=== PATIENT | male | born 1940 | race Hispanic/Latino ===

== ENCOUNTER → 2020-03-23 | Day surgery (SDC) | payer MEDICARE, OTHER ==
[~2020-03-23] MED LIST: ALLOPURINOL100 MG PO; FENTANYL CITRATE/PF 100MCG/2 ML INJ ONE; LEVOTHYROXINE75 MCG PO; METFORMIN HCL500 MG PO; MIDAZOLAM HCL 2 MG/2 ML VIAL ONE; OR PHACO EYE KIT ONE; PREOP PHACO EYE KIT ONE; VASOTEC5 MG PO
[2020-03-23 15:33] VITALS: BP 156/90
== END | disposition home or self-care (01) ==
LOC: OR 11:59 → EDSEX 11:59
PROVIDERS: ATTEND Ophthalmology
DX: H25.11 Age-related nuclear cataract, right eye (principal); I10 Essential (primary) hypertension; M10.9 Gout, unspecified; E03.9 Hypothyroidism, unspecified; K21.9 Gastro-esophageal reflux disease without esophagitis; E11.9 Type 2 diabetes mellitus without complications; Z01.812 Encounter for preprocedural laboratory examination; Z20.828 Contact with and (suspected) exposure to other viral communicable diseases
CPT/HCPCS: 66984; U0002; V2632; J2250; J3010

== ENCOUNTER 2022-01-27 11:03 | Inpatient (IN) | payer MEDICARE, OTHER ==
[~2022-01-27] VITALS: Ht 162.6 cm; Wt 88.0 kg
[2022-01-27] VITALS (9 sets, daily range): BP systolic 97–161; BP diastolic 60–114
[~2022-01-27 11:03] MED LIST changes: -FENTANYL CITRATE/PF 100MCG/2 ML INJ ONE; -MIDAZOLAM HCL 2 MG/2 ML VIAL ONE; -OR PHACO EYE KIT ONE; -PREOP PHACO EYE KIT ONE
[2022-01-27] MEDS ORDERED: ACETAMINOPHEN 325 MG TAB PO ONE (11:45)
[2022-01-27] MEDS ORDERED: SODIUM CHLORIDE 0.9% 1000ML 1,000 ML IV ONE (11:45)
[2022-01-27 11:59] LABS: BASOPHILS % 0.3 % (0.0-1.0); EOSINOPHILS % 0.3 % (0.0-6.0); HEMATOCRIT 36.9 % (38.2-49.6); HEMOGLOBIN 12.9 g/dL (14.0-18.0); LYMPHOCYTES # (AUTO) 0.8 (1.0-3.2); LYMPHOCYTES % 6.6 % (18.0-39.1); MEAN CORPUSCULAR HEMOGLOBIN 31.2 pg (28-32); MEAN CORPUSCULAR VOLUME 89.1 fL (81-99); MONOCYTES # (AUTO) 0.6 (0.2-0.8); MONOCYTES % 4.9 % (4.4-11.3); NEUTROPHILS # (AUTO) 11.1 (2.1-6.9); NEUTROPHILS % 86.7 % (38.7-80.0); PLATELET COUNT 185 x10e3/uL (140-360); RED BLOOD COUNT 4.14 x10e6/uL (4.3-5.7); RED CELL DISTRIBUTION WIDTH 12.8 % (11.7-14.4)
[2022-01-27 12:03] LABS: INR 1.02; PROTHROMBIN TIME 14.3 seconds (11.9-14.5)
[2022-01-27 12:04] LABS: PARTIAL THROMBOPLASTIN TIME 34.1 seconds (23.8-35.5)
[2022-01-27 12:35] LABS: ALBUMIN 3.3 g/dL (3.5-5.0); ALBUMIN/GLOBULIN RATIO 0.8 (0.8-2.0); ANION GAP 18.2 mmol/L (8-16); CALCIUM 8.6 mg/dL (8.4-10.2); CREATININE, SERUM 1.69 mg/dL (0.72-1.25); POTASSIUM 4.2 mmol/L (3.5-5.1)
[2022-01-27] MEDS ORDERED: POVIDONE IODINE 0.05% 0.05 % ML PO ONE (13:57)
[2022-01-27] MEDS ORDERED: LIDOCAINE HCL 2% LOCAL INJ 5 ML SDV VIAL INJ ONE (13:57)
[2022-01-27] MEDS ORDERED: PROPOFOL IV EMULSION 10 MG/ML 20 ML VIAL ONE (13:57)
[2022-01-27 14:25] LABS: CLARITY,URINE SL CLOUDY (CLEAR); COLOR,URINE AMBER (YELLOW)
[2022-01-27 14:26] LABS: KETONES,URINE NEGATIVE (NEGATIVE); LEUKOCYTE ESTERASE ,URINE NEGATIVE (NEGATIVE); NITRITE,URINE NEGATIVE (NEGATIVE); PROTEIN,URINE DIPSTICK 1+ (NEGATIVE); URINE UROBILINOGEN 0.2 mg/dL (0.2 - 1)
[2022-01-27 14:40] LABS: BACTERIA,URINE MODERATE /HPF; RBC,URINE 0-5 /HPF (0-5)
[2022-01-27 15:13] LABS: FREE THYROXINE INDEX 2.3693 (1.4-3.8); THYROID STIMULATING HORMONE 3.659 uIU/mL (0.350-4.940)
[2022-01-27] MEDS ORDERED: SODIUM CHLORIDE 0.9% 1000ML 1,000 ML ONE (15:20)
[2022-01-27] MEDS ORDERED: ONDANSETRON HCL INJ 2MG/ML 2ML 2 MG/ML VIAL IV PRN (16:15)
[2022-01-27] MEDS ORDERED: SODIUM CHLORIDE FLUSH 10 ML SYR INJ PRN (16:15)
[2022-01-27] MEDS ORDERED: METOPROLOL SUCCINATE 25 MG TAB XL PO ONE (20:15)
[2022-01-27 20:34] LABS: CREATINE KINASE MB 4.6 ng/mL (0-5.0)
[2022-01-27] MEDS ORDERED: DOCUSATE SODIUM 100 MG CAP PO PRN (22:00)
[2022-01-27] MEDS ORDERED: HYDRALAZINE HCL 20 MG/ML VIAL IV PRN (22:00)
[2022-01-27] MEDS ORDERED: DEXTROSE 50% SYRINGE 50 ML IV PRN (22:00)
[2022-01-27] MEDS ORDERED: ALBUTEROL SULF 0.083% NEB SOLN 3 ML NEB NEB PRN (22:00)
[2022-01-27] MEDS ORDERED: MELATONIN 3 MG TAB PO PRN (22:00)
[2022-01-27] MEDS ORDERED: GUAIFENESIN/DEXTROMETHORPHAN LIQD 5 ML UDC PO PRN (22:00)
[2022-01-27] MEDS ORDERED: MAGNESIUM/ALUMINUM/SIMETHICONE 30 ML UDC PO PRN (22:00)
[2022-01-27] MEDS: LACTATED RINGER'S 1,000 ML INJ SCH (22:29)
[2022-01-27] MEDS: ACETAMINOPHEN 325 MG TAB PO PRN (22:48)
[2022-01-28] VITALS (17 sets, daily range): BP systolic 95–128; BP diastolic 61–93
[2022-01-28 07:17] LABS: BASOPHILS % 0.3 % (0.0-1.0); EOSINOPHILS % 0.2 % (0.0-6.0); HEMATOCRIT 35.4 % (38.2-49.6); HEMOGLOBIN 12.6 g/dL (14.0-18.0); LYMPHOCYTES # (AUTO) 0.9 (1.0-3.2); LYMPHOCYTES % 6.7 % (18.0-39.1); MEAN CORPUSCULAR HEMOGLOBIN 32.2 pg (28-32); MEAN CORPUSCULAR HGB CONC 35.6 g/dL (31-35); MEAN CORPUSCULAR VOLUME 90.5 fL (81-99); MONOCYTES # (AUTO) 0.5 (0.2-0.8); NEUTROPHILS # (AUTO) 11.2 (2.1-6.9); NEUTROPHILS % 87.3 % (38.7-80.0); PLATELET COUNT 173 x10e3/uL (140-360); RED BLOOD COUNT 3.91 x10e6/uL (4.3-5.7); RED CELL DISTRIBUTION WIDTH 12.9 % (11.7-14.4)
[2022-01-28] MEDS: INSULIN REGULAR, HUMAN 100 UNIT/1 ML SQ SCH ×4 (07:30→21:00)
[2022-01-28 07:40] LABS: ANION GAP 15.2 mmol/L (8-16); CREATININE, SERUM 1.43 mg/dL (0.72-1.25); POTASSIUM 4.2 mmol/L (3.5-5.1)
[2022-01-28 07:41] LABS: ALBUMIN 2.9 g/dL (3.5-5.0); ALBUMIN/GLOBULIN RATIO 0.7 (0.8-2.0); CALCIUM 8.3 mg/dL (8.4-10.2); MAGNESIUM 1.9 MG/DL (1.3-2.1); PHOSPHORUS 4.3 MG/DL (2.3-4.7)
[2022-01-28 08:05] LABS: FERRITIN 1381.44 ng/mL (21.81-274.66)
[2022-01-28] MEDS: MULTIVITAMINS/MINERALS TAB PO SCH (09:05)
[2022-01-28] MEDS: LEVOTHYROXINE SODIUM 88 MCG TAB PO SCH (09:05)
[2022-01-28] MEDS: ALLOPURINOL 100 MG TAB PO SCH ×2 (09:05→17:52)
[2022-01-28] MEDS: METOPROLOL SUCCINATE 25 MG TAB XL PO SCH (09:06)
[2022-01-28] MEDS: LACTATED RINGER'S 1,000 ML INJ SCH (12:56)
[2022-01-28 14:36] LABS: CREATINE KINASE MB 2.1 ng/mL (0-5.0)
[2022-01-28] MEDS ORDERED: THIAMINE HCL INJ 100 MG/ML 2ML VIAL IV ONE (14:45)
[2022-01-28] MEDS ORDERED: ENOXAPARIN SOD INJ 40 MG/0.4 ML SYR SC SCH (17:00)
[2022-01-28 17:37] LABS: HIV 1&2 AB SCREEN NON-REACTIVE (NONREACTIVE)
[2022-01-28] MEDS ORDERED: THIAMINE HCL INJ 100 MG/ML 2ML VIAL ONE (18:02)
[2022-01-28 18:12] LABS: HEMATOCRIT 32.3 % (38.2-49.6); HEMOGLOBIN 10.9 g/dL (14.0-18.0)
[2022-01-29] VITALS (22 sets, daily range): BP systolic 93–123; BP diastolic 48–80
[2022-01-29] MEDS: LACTATED RINGER'S 1,000 ML INJ SCH ×2 (01:54→16:34)
[2022-01-29 05:57] LABS: BASOPHILS % 0.2 % (0.0-1.0); EOSINOPHILS % 0.1 % (0.0-6.0); HEMATOCRIT 31.9 % (38.2-49.6); HEMOGLOBIN 10.5 g/dL (14.0-18.0); LYMPHOCYTES # (AUTO) 1.4 (1.0-3.2); LYMPHOCYTES % 9.4 % (18.0-39.1); MEAN CORPUSCULAR HEMOGLOBIN 31.1 pg (28-32); MEAN CORPUSCULAR HGB CONC 32.9 g/dL (31-35); MEAN CORPUSCULAR VOLUME 94.4 fL (81-99); MONOCYTES # (AUTO) 0.6 (0.2-0.8); NEUTROPHILS # (AUTO) 12.2 (2.1-6.9); NEUTROPHILS % 85.2 % (38.7-80.0); PLATELET COUNT 203 x10e3/uL (140-360); RED BLOOD COUNT 3.38 x10e6/uL (4.3-5.7); RED CELL DISTRIBUTION WIDTH 12.5 % (11.7-14.4)
[2022-01-29 06:16] LABS: ANION GAP 14.1 mmol/L (8-16); CALCIUM 8.2 mg/dL (8.4-10.2); CREATININE, SERUM 1.52 mg/dL (0.72-1.25); MAGNESIUM 2.1 MG/DL (1.3-2.1); POTASSIUM 4.1 mmol/L (3.5-5.1)
[2022-01-29] MEDS: INSULIN REGULAR, HUMAN 100 UNIT/1 ML SQ SCH ×4 (07:15→20:01)
[2022-01-29] MEDS: LEVOTHYROXINE SODIUM 88 MCG TAB PO SCH (07:35)
[2022-01-29] MEDS: ALLOPURINOL 100 MG TAB PO SCH ×2 (08:22→17:02)
[2022-01-29] MEDS: MULTIVITAMINS/MINERALS TAB PO SCH (08:22)
[2022-01-29] MEDS: METOPROLOL SUCCINATE 25 MG TAB XL PO SCH (08:23)
[2022-01-29] MEDS: IRON SUCROSE 100 MG in SODIUM CHLORIDE 0.9% 100 ML IV SCH (10:20)
[2022-01-29] MEDS: ACETAMINOPHEN 325 MG TAB PO PRN (11:38)
[2022-01-29] MEDS ORDERED: BISACODYL 5 MG TAB EC PO ONE ×2 (22:30→23:00)
[2022-01-30] VITALS (16 sets, daily range): BP systolic 91–126; BP diastolic 57–79
[2022-01-30] MEDS: LACTATED RINGER'S 1,000 ML INJ SCH ×2 (04:27→18:32)
[2022-01-30] MEDS: INSULIN REGULAR, HUMAN 100 UNIT/1 ML SQ SCH ×4 (07:30→20:12)
[2022-01-30] MEDS: LEVOTHYROXINE SODIUM 88 MCG TAB PO SCH (08:07)
[2022-01-30 08:56] LABS: BASOPHILS # (AUTO) 0.1 (0.0-0.1); BASOPHILS % 0.5 % (0.0-1.0); EOSINOPHILS % 0.2 % (0.0-6.0); HEMATOCRIT 30.9 % (38.2-49.6); HEMOGLOBIN 10.7 g/dL (14.0-18.0); MEAN CORPUSCULAR HEMOGLOBIN 31.8 pg (28-32); MEAN CORPUSCULAR HGB CONC 34.6 g/dL (31-35); MONOCYTES # (AUTO) 0.3 (0.2-0.8); MONOCYTES % 1.9 % (4.4-11.3); PLATELET COUNT 239 x10e3/uL (140-360); RED BLOOD COUNT 3.36 x10e6/uL (4.3-5.7); RED CELL DISTRIBUTION WIDTH 13.2 % (11.7-14.4)
[2022-01-30] MEDS: ACETAMINOPHEN 325 MG TAB PO PRN (09:10)
[2022-01-30] MEDS: METOPROLOL SUCCINATE 25 MG TAB XL PO SCH (09:21)
[2022-01-30] MEDS: ALLOPURINOL 100 MG TAB PO SCH ×2 (09:22→17:00)
[2022-01-30] MEDS: MULTIVITAMINS/MINERALS TAB PO SCH (09:22)
[2022-01-30] MEDS: IRON SUCROSE 100 MG in SODIUM CHLORIDE 0.9% 100 ML IV SCH (09:22)
[2022-01-30 09:33] LABS: ALBUMIN 2.5 g/dL (3.5-5.0); ALBUMIN/GLOBULIN RATIO 0.7 (0.8-2.0); ANION GAP 15.7 mmol/L (8-16); CALCIUM 8.2 mg/dL (8.4-10.2); CREATININE, SERUM 1.61 mg/dL (0.72-1.25); POTASSIUM 3.7 mmol/L (3.5-5.1)
[2022-01-31] VITALS (24 sets, daily range): BP systolic 98–134; BP diastolic 64–89
[2022-01-31 05:41] LABS: BASOPHILS # (AUTO) 0.1 (0.0-0.1); BASOPHILS % 0.4 % (0.0-1.0); EOSINOPHILS # (AUTO) 0.1 (0.0-0.4); EOSINOPHILS % 1.1 % (0.0-6.0); HEMATOCRIT 29.3 % (38.2-49.6); HEMOGLOBIN 10.1 g/dL (14.0-18.0); LYMPHOCYTES # (AUTO) 2.3 (1.0-3.2); LYMPHOCYTES % 19.3 % (18.0-39.1); MEAN CORPUSCULAR HEMOGLOBIN 31.7 pg (28-32); MEAN CORPUSCULAR HGB CONC 34.5 g/dL (31-35); MEAN CORPUSCULAR VOLUME 91.8 fL (81-99); MONOCYTES # (AUTO) 0.6 (0.2-0.8); MONOCYTES % 4.7 % (4.4-11.3); NEUTROPHILS # (AUTO) 8.6 (2.1-6.9); NEUTROPHILS % 71.8 % (38.7-80.0); PLATELET COUNT 255 x10e3/uL (140-360); RED BLOOD COUNT 3.19 x10e6/uL (4.3-5.7); RED CELL DISTRIBUTION WIDTH 13.2 % (11.7-14.4)
[2022-01-31] MEDS: LACTATED RINGER'S 1,000 ML INJ SCH ×2 (05:50→19:20)
[2022-01-31 06:19] LABS: ALBUMIN 2.4 g/dL (3.5-5.0); ALBUMIN/GLOBULIN RATIO 0.7 (0.8-2.0); ANION GAP 13.8 mmol/L (8-16); CALCIUM 8.2 mg/dL (8.4-10.2); CREATININE, SERUM 1.42 mg/dL (0.72-1.25); POTASSIUM 3.8 mmol/L (3.5-5.1)
[2022-01-31] MEDS: INSULIN REGULAR, HUMAN 100 UNIT/1 ML SQ SCH ×4 (07:30→20:57)
[2022-01-31] MEDS: LEVOTHYROXINE SODIUM 88 MCG TAB PO SCH (07:45)
[2022-01-31 08:36] LABS: LYMPHOCYTES % (MANUAL) 14 % (19-48); MONOCYTES % (MANUAL) 6 % (3.4-9.0); NEUTROPHILS % (MANUAL) 80 % (40-74)
[2022-01-31 08:40] LABS: PLATELET ESTIMATE ADEQUATE; PLATELET MORPHOLOGY COMMENT NORMAL; RBC MORPHOLOGY COMMENT NORMAL
[2022-01-31] MEDS: ALLOPURINOL 100 MG TAB PO SCH ×2 (08:45→16:20)
[2022-01-31] MEDS: MULTIVITAMINS/MINERALS TAB PO SCH (08:45)
[2022-01-31] MEDS: IRON SUCROSE 100 MG in SODIUM CHLORIDE 0.9% 100 ML IV SCH (08:46)
[2022-01-31] MEDS: METOPROLOL SUCCINATE 25 MG TAB XL PO SCH (08:46)
[2022-01-31] MEDS: HEPARIN SOD (PORCINE) 5,000 UNIT/ML VIAL SC SCH ×2 (09:15→21:46)
[2022-02-01] VITALS (21 sets, daily range): BP systolic 105–153; BP diastolic 66–92
[2022-02-01] MEDS: INSULIN REGULAR, HUMAN 100 UNIT/1 ML SQ SCH ×4 (07:30→21:00)
[2022-02-01] MEDS: METOPROLOL SUCCINATE 25 MG TAB XL PO SCH (08:21)
[2022-02-01] MEDS: LEVOTHYROXINE SODIUM 88 MCG TAB PO SCH (08:21)
[2022-02-01] MEDS: MULTIVITAMINS/MINERALS TAB PO SCH (08:22)
[2022-02-01] MEDS: IRON SUCROSE 100 MG in SODIUM CHLORIDE 0.9% 100 ML IV SCH (08:22)
[2022-02-01] MEDS: ALLOPURINOL 100 MG TAB PO SCH ×2 (08:22→17:00)
[2022-02-01] MEDS ORDERED: SODIUM CHLORIDE 0.9% 100 ML ONE (08:27)
[2022-02-01] MEDS: HEPARIN SOD (PORCINE) 5,000 UNIT/ML VIAL SC SCH ×2 (08:36→22:28)
[2022-02-02] VITALS (8 sets, daily range): BP systolic 109–149; BP diastolic 73–86
[2022-02-02] MEDS: INSULIN REGULAR, HUMAN 100 UNIT/1 ML SQ SCH ×4 (07:30→21:48)
[2022-02-02] MEDS: IRON SUCROSE 100 MG in SODIUM CHLORIDE 0.9% 100 ML IV SCH (09:00)
[2022-02-02] MEDS: METOPROLOL SUCCINATE 25 MG TAB XL PO SCH (09:00)
[2022-02-02] MEDS: ALLOPURINOL 100 MG TAB PO SCH ×2 (09:00→17:00)
[2022-02-02] MEDS: MULTIVITAMINS/MINERALS TAB PO SCH (09:00)
[2022-02-02] MEDS ORDERED: SODIUM CHLORIDE 0.9% 100 ML ONE (10:23)
[2022-02-02] MEDS: HEPARIN SOD (PORCINE) 5,000 UNIT/ML VIAL SC SCH ×2 (11:32→21:46)
[2022-02-02] MEDS ORDERED: ONDANSETRON HCL 4 MG ORAL DISINTEGRATING TAB PO PRN (11:45)
[2022-02-03] VITALS: BP 114/63
[2022-02-03 04:00] VITALS: BP 137/74
[2022-02-03] MEDS: INSULIN REGULAR, HUMAN 100 UNIT/1 ML SQ SCH (07:30)
[2022-02-03 07:49] VITALS: BP 138/73
[2022-02-03 08:03] VITALS: BP 138/73
[2022-02-03] MEDS: LEVOTHYROXINE SODIUM 88 MCG TAB PO SCH ×2 (08:25→08:45)
[2022-02-03] MEDS: ALLOPURINOL 100 MG TAB PO SCH (08:45)
[2022-02-03] MEDS: MULTIVITAMINS/MINERALS TAB PO SCH (08:45)
[2022-02-03] MEDS: METOPROLOL SUCCINATE 25 MG TAB XL PO SCH (08:47)
[2022-02-03] MEDS: HEPARIN SOD (PORCINE) 5,000 UNIT/ML VIAL SC SCH (08:48)
[2022-02-03] MEDS ORDERED: TOPROL XL25 MG PO (09:58)
== END 2022-02-03 10:55 | disposition home or self-care (01) | DRG 377 ==
LOC: ER 11:07 → ERHOLD 16:17 → ICU 17:04 → MED/SURG3 02-01 17:11
PROVIDERS: ADMIT Internal Medicine; ATTEND Internal Medicine
PROC: 0DB68ZX Excision of Stomach, Via Natural or Artificial Opening Endoscopic, Diagnostic (ICD-10-PCS; principal; 2022-02-01 19:52)
DX: K29.71 Gastritis, unspecified, with bleeding (principal); G93.41 Metabolic encephalopathy; E87.1 Hypo-osmolality and hyponatremia; N17.9 Acute kidney failure, unspecified; E87.20 Acidosis, unspecified; K20.91 Esophagitis, unspecified with bleeding; I49.3 Ventricular premature depolarization; R63.0 Anorexia; E03.9 Hypothyroidism, unspecified; E11.22 Type 2 diabetes mellitus with diabetic chronic kidney disease; I12.9 Hypertensive chronic kidney disease with stage 1 through stage 4 chronic kidney disease, or unspecified chronic kidney disease; N18.30 Chronic kidney disease, stage 3 unspecified; K44.9 Diaphragmatic hernia without obstruction or gangrene; K26.9 Duodenal ulcer, unspecified as acute or chronic, without hemorrhage or perforation; R25.1 Tremor, unspecified; Z85.51 Personal history of malignant neoplasm of bladder; Z87.891 Personal history of nicotine dependence; D63.8 Anemia in other chronic diseases classified elsewhere; Z20.822 Contact with and (suspected) exposure to COVID-19; D50.9 Iron deficiency anemia, unspecified
CPT/HCPCS: 36415; 43239; 71045; 76770; 80048; 80053; 81001; 82270; 82550; 82553; 82607; 82728; 82746; 82948; 83540; 83605; 83690; 83735; 84100; 84436; 84443; 84466; 84479; 84484; 85014; 85018; 85025; 85610; 85730; 87040; 87086; 87390; 87400; 88305; 88312; 88342; 93005; 93306; 93880; 94799; 96372; 99251; G0433; G0435; J0696; J1644; J1756; J1817; J2001; J3411; J7030; J7050; J7121